=== PATIENT | female | born 1925 | race Asian ===

== ENCOUNTER 2017-01-13 19:09 | Emergency (ER) | payer MEDICARE, MEDICAID ==
[~2017-01-13] VITALS: Ht 149.9 cm; Wt 46.7 kg
--- NOTE | 2017-01-13 19:15 | NUR ---
DR LORENZO AT BEDSIDE TO
--- NOTE | 2017-01-13 19:15 | NUR ---
TO BED 7 AN 89 YO FEMALE PATIENT BIBRA 39 C/O SOB SINCE YESTERDAY. PER EMS "PT RAN OUT OF ALBUTEROL TODAY." BREATHING TREATMENT GIVEN BY PARAMEDICS, PATIENT REPORTS RELIEF FROM SOB UPON ARRIVAL. VSS. NAD NOTED. PLACED ON MONITOR. KEPT HOB ELEVATED. GOWNED. COMFORT MEASURES RENDERED.
[2017-01-13] MEDS ORDERED: predniSONE 10 MG TABLET ONE (19:43)
[2017-01-13] MEDS ORDERED: predniSONE 20 MG TABLET ONE (19:43)
--- NOTE | 2017-01-13 19:50 | NUR ---
STARTED A SALINE LOCK ON THE RAC G20, BLOOD DRAWN AND SENT TO LAB.
[2017-01-13 19:55] LABS: BASOPHILS # (AUTO) 0.2 /CMM (0.0-0.2); BASOPHILS % (AUTO) 1.4 % (0.0-2.0); EOSINOPHILS # (AUTO) 0.2 /CMM (0.0-0.7); EOSINOPHILS % (AUTO) 1.7 % (0.0-6.0); HEMATOCRIT 40 % (33-45); HEMOGLOBIN 13.1 g/dL (11.5-14.8); LYMPHOCYTES # (AUTO) 0.7 /CMM (0.8-4.8); MEAN CORPUSCULAR HEMOGLOBIN 28 PG (26.0-33.0); MEAN CORPUSCULAR HGB CONC 33 g/dl (31.0-36.0); MEAN CORPUSCULAR VOLUME 86 fL (82-100); MONOCYTES # (AUTO) 0.4 /CMM (0.1-1.30); MONOCYTES % (AUTO) 3.4 % (2.0-12.0); NEUTROPHILS % (AUTO) 87.5 % (43.0-81.0); PLATELET COUNT (AUTO) 134 /CMM (150-450); RDW COEFFICIENT OF VARIATION 13.3 (11.5-15.0); RED BLOOD CELL COUNT(AUTO) 4.63 MIL/uL (4.0-5.2); WHITE BLOOD COUNT (AUTO) 11.5 K/uL (4.3-11.0)
[2017-01-13] MEDS ORDERED: predniSONE 20 MG TABLET PO ONE (20:00)
[2017-01-13 20:05] LABS: CALCIUM, SERUM 9.4 mg/dL (8.5-10.1); CARBON DIOXIDE 27 mmol/L (21-32); CHLORIDE 104 mmol/L (98-107); CREATININE 0.8 mg/dL (0.6-1.3); GLUCOSE 125 mg/dL (74-106); POTASSIUM 3.6 mmol/L (3.5-5.1); SODIUM SERUM 140 mmol/L (136-145); UREA NITROGEN, BLOOD 16 mg/dL (7-18)
[2017-01-13 20:11] LABS: ALANINE AMINOTRANSFERASE 33 U/L (12-78); ALBUMIN 3.9 g/dL (3.4-5.0); ALKALINE PHOSPHATASE 67 U/L (46-116); ASPARTATE AMINOTRANSFERASE 31 U/L (15-37); BILIRUBIN,DIRECT 0.1 mg/dL (0.0-0.2); BILIRUBIN,TOTAL 0.4 mg/dL (0.2-1.0)
[2017-01-13 20:13] LABS: TROPONIN I < 0.017 ng/mL (0.00-0.056)
[2017-01-13] MEDS ORDERED: IBUPROFEN 400 MG TABLET ONE (22:26)
[2017-01-13] MEDS ORDERED: IBUPROFEN 400 MG TABLET PO ONE (22:30)
--- NOTE | 2017-01-13 22:56 | NUR ---
IV removed. Catheter intact and site benign. Pressure and 4x4 applied to site. No bleeding noted. Patient discharged to home in stable condition. Written and verbal after care instructions given. Patient verbalizes understanding of instruction. Patient wheeled to private car, accompanied by family. ACE. Emmanuel on DC.
[2017-01-13 22:57] VITALS: BP 139/69
== END 2017-01-13 22:57 | disposition home or self-care (01) ==
LOC: ER 19:16
DX: J45.901 Unspecified asthma with (acute) exacerbation (principal); R50.9 Fever, unspecified; J40 Bronchitis, not specified as acute or chronic; D72.829 Elevated white blood cell count, unspecified; I10 Essential (primary) hypertension; J44.1 Chronic obstructive pulmonary disease with (acute) exacerbation; Z79.82 Long term (current) use of aspirin; Z88.0 Allergy status to penicillin; Z88.1 Allergy status to other antibiotic agents; Z95.818 Presence of other cardiac implants and grafts
CPT/HCPCS: 36415; 71010; 80048; 80076; 84484; 85025; 87081; 93005; 99285; A4606; J7512 ×2; Z7610

== ENCOUNTER 2017-01-15 09:15 | Inpatient (IN) | payer MEDICARE, MEDICAID ==
[~2017-01-15] VITALS: Ht 152.4 cm; Wt 45.4 kg
--- NOTE | 2017-01-15 09:29 | NUR ---
RHEA FROM HOME C/O CP AND STATES SHE CHEWED 2 ASA EN ROUTE TO ER. AAO4.
[2017-01-15] MEDS ORDERED: ALBUTEROL FS 2.5 MG/0.5 ML VIAL.NEB NEB ONE (09:30)
[2017-01-15] MEDS ORDERED: predniSONE 20 MG TABLET PO ONE (09:30)
[2017-01-15] MEDS ORDERED: IPRATROPIUM NEB FS 0.5 MG/2.5 ML AMPUL.NEB NEB ONE (09:30)
[2017-01-15] MEDS ORDERED: predniSONE 20 MG TABLET ONE (09:37)
[2017-01-15 09:44] LABS: BASOPHILS # (AUTO) 0.1 /CMM (0.0-0.2); EOSINOPHILS # (AUTO) 0.1 /CMM (0.0-0.7); EOSINOPHILS % (AUTO) 1.2 % (0.0-6.0); HEMATOCRIT 38 % (33-45); HEMOGLOBIN 12.4 g/dL (11.5-14.8); LYMPHOCYTES # (AUTO) 0.9 /CMM (0.8-4.8); LYMPHOCYTES % (AUTO) 13.9 % (20.0-44.0); MEAN CORPUSCULAR HEMOGLOBIN 28 PG (26.0-33.0); MEAN CORPUSCULAR HGB CONC 33 g/dl (31.0-36.0); MEAN CORPUSCULAR VOLUME 86 fL (82-100); MONOCYTES # (AUTO) 0.8 /CMM (0.1-1.30); MONOCYTES % (AUTO) 11.5 % (2.0-12.0); NEUTROPHILS # (AUTO) 4.8 /CMM (1.8-8.9); NEUTROPHILS % (AUTO) 71.4 % (43.0-81.0); PLATELET COUNT (AUTO) 144 /CMM (150-450); RDW COEFFICIENT OF VARIATION 13.6 (11.5-15.0); RED BLOOD CELL COUNT(AUTO) 4.41 MIL/uL (4.0-5.2); WHITE BLOOD COUNT (AUTO) 6.7 K/uL (4.3-11.0)
[2017-01-15] MEDS ORDERED: IPRATROPIUM NEB FS 0.5 MG/2.5 ML AMPUL.NEB ONE (09:46)
[2017-01-15] MEDS ORDERED: ALBUTEROL FS 2.5 MG/0.5 ML VIAL.NEB ONE (09:46)
[2017-01-15 09:53] LABS: CALCIUM, SERUM 9.2 mg/dL (8.5-10.1); CARBON DIOXIDE 26 mmol/L (21-32); CHLORIDE 105 mmol/L (98-107); CREATININE 0.9 mg/dL (0.6-1.3); GLUCOSE 120 mg/dL (74-106); POTASSIUM 3.9 mmol/L (3.5-5.1); SODIUM SERUM 138 mmol/L (136-145); UREA NITROGEN, BLOOD 27 mg/dL (7-18)
[2017-01-15 09:59] LABS: ALANINE AMINOTRANSFERASE 32 U/L (12-78); ALBUMIN 3.5 g/dL (3.4-5.0); ALKALINE PHOSPHATASE 55 U/L (46-116); ASPARTATE AMINOTRANSFERASE 36 U/L (15-37); BILIRUBIN,DIRECT 0.1 mg/dL (0.0-0.2); BILIRUBIN,TOTAL 0.2 mg/dL (0.2-1.0); TOTAL PROTEIN, SERUM 7.4 g/dL (6.4-8.2)
[2017-01-15 10:01] LABS: TROPONIN I < 0.017 ng/mL (0.00-0.056)
[2017-01-15] MEDS ORDERED: ACET-73 PO (10:02)
[2017-01-15] MEDS ORDERED: LOSA100T15 PO (10:02)
[2017-01-15] MEDS ORDERED: AMLO10TA2 PO (10:02)
[2017-01-15] MEDS ORDERED: PRED20TA PO (10:02)
[2017-01-15] MEDS ORDERED: LABE100T PO (10:02)
[2017-01-15] MEDS ORDERED: ASPI81TA2 PO (10:02)
[2017-01-15] MEDS ORDERED: ALBU2.5V38 IH (10:02)
[2017-01-15] MEDS ORDERED: OXYC10TA49 PO (10:02)
[2017-01-15 10:04] LABS: INR 0.94 (0.87-1.13); PROTHROMBIN TIME 9.8 SECS (9.5-12.7)
[2017-01-15] MEDS ORDERED: OXYB5TAB11 PO (10:04)
--- NOTE | 2017-01-15 10:04 | NUR ---
REPORT CALLED TO BREANA ROJAS RN. TRF TO RM [phone].
--- NOTE | 2017-01-15 11:30 | NUR ---
MS RN RECEIVED AN 89 YEAR OLD FEMALE, AWAKE,ALERT,ORIENTED X2-3, NOT IN ANY FORM OF DISTRESS, RESPIRATIONS EVEN AND UNLABORED, NO SOB NOTED. CAME IN W/ COMPLAIN OF ASTHMA AND CHEST PAIN, BUT DENIES PAIN AT THIS TIME.WILL MONITOR PATIENT.
[2017-01-15 12:00] VITALS: BP 161/69
--- NOTE | 2017-01-15 12:00 | NUR ---
MS RN PAGED KASEY FOR ORDERS, RESPONDED THRU TEXT, WILL PUT ORDERS.
[2017-01-15 16:00] VITALS: BP_SYST 161; BP_SYST 164; BP_DIAS 69; BP_DIAS 73
[2017-01-15] MEDS: AMLODIPINE BESYLATE 10 MG TABLET PO SCH (16:38)
--- NOTE | 2017-01-15 16:44 | NUR ---
ms prosper dixon put orders and carried out.no distress noted.
[2017-01-15] MEDS ORDERED: LABETALOL HCL (100MG) 100 MG TABLET PO SCH (16:46)
[2017-01-15] MEDS ORDERED: LOSARTAN POTASSIUM 50 MG TABLET PO SCH (16:48)
[2017-01-15] MEDS ORDERED: ENOXAPARIN SODIUM 40 MG/0.4 ML DISP.SYRIN SQ SCH (17:00)
[2017-01-15] MEDS ORDERED: HYDROMORPHONE INJ 2 MG/ML DISP.SYRIN IV PRN (17:00)
[2017-01-15] MEDS ORDERED: Z GUARD REMEDY 2 OZ OINT TP PRN (17:00)
[2017-01-15] MEDS ORDERED: ACETAMINOPHEN 325 MG TABLET PO PRN (17:00)
[2017-01-15] MEDS ORDERED: ONDANSETRON HCL/PF 4 MG/2 ML VIAL IVP PRN (17:00)
[2017-01-15] MEDS ORDERED: MORPHINE SULFATE INJ 2 MG/ML DISP.SYRIN IV PRN (17:00)
[2017-01-15] MEDS: ENOXAPARIN SODIUM 30 MG/0.3 ML DISP.SYRIN SQ SCH (17:33)
[2017-01-15 18:23] LABS: TROPONIN I < 0.017 ng/mL (0.00-0.056)
[2017-01-15 18:25] LABS: THYROID STIMULATING HORMONE 0.155 uIU/mL (0.358-3.74)
--- NOTE | 2017-01-15 18:28 | NUR ---
MS RN ON BED, NO DISTRESS NOTED,ALL NEEDS ATTENDED.
[2017-01-15] MEDS: IPRATROPIUM NEB FS 0.5 MG/2.5 ML AMPUL.NEB NEB SCH ×2 (19:14→22:34)
[2017-01-15] MEDS: ALBUTEROL FS 2.5 MG/3 ML VIAL.NEB IH SCH ×2 (19:14→22:34)
[2017-01-15] MEDS ORDERED: ALBUTEROL FS 2.5 MG/0.5 ML VIAL.NEB NEB SCH (19:30)
--- NOTE | 2017-01-15 19:30 | NUR ---
MS RN INITIAL NOTES Received pt alert, awake,verbally responsive,no SOB,no apparent distress noted.Denies any pain or discomfort at this time. IV site Lt FA intact, patent no s/sx of infiltration noted. kept clean and comfortable,call light within reach. Will continue to monitor accordingly
[2017-01-15 20:00] VITALS: BP 146/82
[2017-01-16] VITALS: BP 173/89
[2017-01-16] MEDS: ALBUTEROL FS 2.5 MG/3 ML VIAL.NEB IH SCH ×6 (03:30→23:38)
[2017-01-16] MEDS: IPRATROPIUM NEB FS 0.5 MG/2.5 ML AMPUL.NEB NEB SCH ×6 (03:30→23:38)
[2017-01-16 04:00] VITALS: BP 158/74
--- NOTE | 2017-01-16 06:23 | NUR ---
MS RN Notes Pt in bed asleep, no SOB,no apparent distress noted. On O2 via NC at 2l/min, O2 sat 97%. No s/sx of pain or discomfort noted. Kept clean and comfortable, attended all needs.Call light within reach. Will continue to monitor accordingly
[2017-01-16 06:50] LABS: BASOPHILS % (AUTO) 0.1 % (0.0-2.0); HEMATOCRIT 39 % (33-45); HEMOGLOBIN 12.7 g/dL (11.5-14.8); LYMPHOCYTES # (AUTO) 0.8 /CMM (0.8-4.8); MEAN CORPUSCULAR HEMOGLOBIN 29 PG (26.0-33.0); MEAN CORPUSCULAR HGB CONC 33 g/dl (31.0-36.0); MEAN CORPUSCULAR VOLUME 88 fL (82-100); MONOCYTES # (AUTO) 0.6 /CMM (0.1-1.30); MONOCYTES % (AUTO) 9.2 % (2.0-12.0); NEUTROPHILS # (AUTO) 5.4 /CMM (1.8-8.9); NEUTROPHILS % (AUTO) 78.7 % (43.0-81.0); PLATELET COUNT (AUTO) 137 /CMM (150-450); RDW COEFFICIENT OF VARIATION 14.2 (11.5-15.0); RED BLOOD CELL COUNT(AUTO) 4.43 MIL/uL (4.0-5.2); WHITE BLOOD COUNT (AUTO) 6.9 K/uL (4.3-11.0)
[2017-01-16 07:14] LABS: CHOLESTEROL 188 mg/dL (<200); HDL CHOLESTEROL 79 mg/dL (40-60); LDL 89 mg/dL (0-99); THYROID STIMULATING HORMONE 0.425 uIU/mL (0.358-3.74); TRIGLYCERIDES 84 mg/dL (30-150)
[2017-01-16 07:29] LABS: ALANINE AMINOTRANSFERASE 34 U/L (12-78); ALKALINE PHOSPHATASE 52 U/L (46-116); ASPARTATE AMINOTRANSFERASE 30 U/L (15-37); BILIRUBIN,TOTAL 0.2 mg/dL (0.2-1.0); CALCIUM, SERUM 8.9 mg/dL (8.5-10.1); CARBON DIOXIDE 28 mmol/L (21-32); CHLORIDE 108 mmol/L (98-107); CREATININE 0.7 mg/dL (0.6-1.3); GLUCOSE 112 mg/dL (74-106); MAGNESIUM 2.4 mg/dL (1.8-2.4); PHOSPHORUS 3.1 mg/dL (2.5-4.9); POTASSIUM 4.1 mmol/L (3.5-5.1); SODIUM SERUM 143 mmol/L (136-145); TOTAL PROTEIN, SERUM 6.8 g/dL (6.4-8.2); UREA NITROGEN, BLOOD 19 mg/dL (7-18)
[2017-01-16 08:00] VITALS: BP 157/70
--- NOTE | 2017-01-16 08:00 | NUR ---
SANITARY PLUMBER AM NOTES Received pt alert, awake,verbally responsive,no SOB,no apparent distress noted.On tele with SB HR 40's.Denies any pain or discomfort at this time. IV site LFA intact, patent no s/sx of infiltration noted. kept clean and comfortable,call light within reach. Will continue to monitor accordingly
[2017-01-16] MEDS: OXYBUTYNIN CHLORIDE 5 MG TABLET PO SCH (08:48)
[2017-01-16] MEDS: AMLODIPINE BESYLATE 10 MG TABLET PO SCH (08:49)
[2017-01-16] MEDS: ASPIRIN 81 MG TAB.CHEW PO SCH (08:49)
[2017-01-16] MEDS: POTASSIUM CHLORIDE 20 MEQ TAB.PRT.SR PO SCH ×2 (08:49→16:54)
[2017-01-16] MEDS: predniSONE 20 MG TABLET PO SCH (08:49)
[2017-01-16] MEDS: VALSARTAN 80 MG TABLET PO SCH (08:49)
--- NOTE | 2017-01-16 10:00 | NUR ---
PT AMBULATED WITH P.T. USING FWW 200 FEET STANDBY ASSIST/CONTACT GUARD IN SLOW,STEADY GAIT BUT NEEDS ASSIST.PT TOLERATED WELL.
--- NOTE | 2017-01-16 11:52 | NUR ---
MSRN NOTES During RELAY ASSEMBLER Alexia rounds patient complaint of chest pain with orders to give Nitroglycerin 0.4mg SL. VS checked BP 142/84, AL 80, RR 18, 02 98% on 2LPM NC. Administered Nitroglycerin as ordered. Will continue to monitor
--- NOTE | 2017-01-16 11:58 | NUR ---
MS -RN NOTES Reassessed patient denied chest pain. VS taken BP 122/88, VT 82, RR 19, 02 98% 2Lpm via NC. ANODE MACHINE OPERATOR Alexia aware
[2017-01-16] MEDS ORDERED: NITROGLYCERIN 0.4 MG/TAB BOTTLE SL PRN (12:00)
[2017-01-16 16:00] VITALS: BP 124/68
[2017-01-16] MEDS: ENOXAPARIN SODIUM 30 MG/0.3 ML DISP.SYRIN SQ SCH (16:55)
--- NOTE | 2017-01-16 18:21 | NUR ---
CLOSING NOTES Patient sitting in bed comfortably, HOB elevated eating dinner. No SOB noted, denied any pain. No distress noted. Call light within easy reach.
[2017-01-16] MEDS: IV NS 0.9% 1,000 ML IV PRN (19:21)
[2017-01-16] MEDS ORDERED: IPRATROPIUM NEB FS 0.5 MG/2.5 ML AMPUL.NEB ONE (19:25)
[2017-01-16] MEDS ORDERED: ALBUTEROL FS 2.5 MG/3 ML VIAL.NEB ONE (19:25)
--- NOTE | 2017-01-16 19:30 | NUR ---
MS RN Initial notes Received pt in bed alert, awake, verbally responsive.On O2 via N/C at 2 l/min. O2 sat 97%. IV site LT FA intact, patent, no s/sx of infiltration noted. kept clean and comfortable, attended all needs.Call light within reach. Will continue to monitor accordingly
[2017-01-16 20:08] VITALS: BP 140/71
[2017-01-16 20:27] VITALS: BP 140/71
[2017-01-17] MEDS: IPRATROPIUM NEB FS 0.5 MG/2.5 ML AMPUL.NEB NEB SCH ×6 (03:40→23:52)
[2017-01-17] MEDS: ALBUTEROL FS 2.5 MG/3 ML VIAL.NEB IH SCH ×6 (03:40→23:52)
[2017-01-17] MEDS: IV NS 0.9% 1,000 ML IV PRN ×2 (04:09→16:28)
--- NOTE | 2017-01-17 06:32 | NUR ---
MS RN CLOSING NOTES PT IN BED AWAKE,ALERT,VERBALLY RESPONSIVE,ON O2 VIA NC AT 2L/MIN, O2 SAT 97%, NO SOB, NO APPARENT DISTRESS NOTED. IV SITE LT FA INTACT, PATENT,ON IV NS AT 100ML/HR. DENIES ANY PAIN OR DISCOMFORT AT THIS TIME.CALL LIGHT WITHIN REACH, WILL CONTINUE TO MONITOR.
[2017-01-17 08:00] VITALS: BP 160/74
--- NOTE | 2017-01-17 08:00 | NUR ---
MS RN AM NOTES Received pt alert, awake,verbally responsive,no SOB,no apparent distress noted.Denies any pain or discomfort at this time. IV site LFA intact, patent no s/sx of infiltration noted. kept clean and comfortable,call light within reach. Will continue to monitor accordingly
[2017-01-17] MEDS: predniSONE 20 MG TABLET PO SCH (08:41)
[2017-01-17] MEDS: ASPIRIN 81 MG TAB.CHEW PO SCH (08:41)
[2017-01-17] MEDS: AMLODIPINE BESYLATE 10 MG TABLET PO SCH (08:42)
[2017-01-17] MEDS: VALSARTAN 80 MG TABLET PO SCH (08:42)
[2017-01-17] MEDS: OXYBUTYNIN CHLORIDE 5 MG TABLET PO SCH (08:43)
[2017-01-17 10:00] VITALS: BP 153/56
[2017-01-17] MEDS: LABETALOL HCL (100MG) 100 MG TABLET PO SCH (11:31)
[2017-01-17 16:00] VITALS: BP 156/79
[2017-01-17] MEDS: ENOXAPARIN SODIUM 30 MG/0.3 ML DISP.SYRIN SQ SCH (16:30)
--- NOTE | 2017-01-17 16:43 | NUR ---
Spoke with ute Urena- patient lives alone in the 2nd floor senior apartment complex that has [facility].Patient ambulates with a cane or a walker, she is independent with adl's.She received [facility] caregiver that comes daily to assist her. Family is involved and supportive with plan of care. Ute Urena can provide transportation home once discharge. Addendum: 01/17/17 at 1643 by YAAKOV ANDRADE RN Amended: Links added.
[2017-01-17] MEDS: Z GUARD REMEDY 2 OZ OINT TP SCH ×2 (17:16→21:00)
--- NOTE | 2017-01-17 18:59 | NUR ---
MS RN CLOSING NOTES Patient in bed comfortably, alert. HOB elevated. No distress noted. No SOB noted. Denied any pain. On O2 via NC saturating 98-99%. Due medications given no A/R noted. IV on LFA intact, patent. No s/sx of infiltration noted. Needs attended and anticipated. Kept clean and dry. Will continue to monitor and endorse to incoming shift.
--- NOTE | 2017-01-17 19:35 | NUR ---
MSRN FULLY AWAKE, FINISHING HER DINNER. ALL NEEDS ATENDED, NO SOB, PAINFREE FOR NOW. INMFORMED NEED TO BE MOVED TO 2ND FLOOR.VIA BED. TO CONTINUE
[2017-01-17 20:00] VITALS: BP 156/88
--- NOTE | 2017-01-17 21:10 | NUR ---
MSRN MOVED TO 2ND FLOOR VIA BED WITH ALL PERSONAL BELONGINGS AND PORTABLE O2. SAFETY PRECAUTIONS EMPHASIZED, WELL UNDERSTOOD. CALL LIGHT WITHIN REACH.
[2017-01-17 22:00] VITALS: BP 156/88
--- NOTE | 2017-01-17 22:30 | NUR ---
MSRN ASSISTED TO RESTROOM, HAD SMALL BM. SELF CARE, AMBULATES WITH FFW.
[2017-01-18] MEDS: ALBUTEROL FS 2.5 MG/3 ML VIAL.NEB IH SCH ×6 (03:30→23:22)
[2017-01-18] MEDS: IPRATROPIUM NEB FS 0.5 MG/2.5 ML AMPUL.NEB NEB SCH ×6 (03:30→23:22)
--- NOTE | 2017-01-18 04:17 | NUR ---
MANJIT REFUSED THIS EARLY AM N TX
[2017-01-18] MEDS: IV NS 0.9% 1,000 ML IV PRN ×2 (05:24→21:04)
--- NOTE | 2017-01-18 06:30 | NUR ---
MSRN NO NEEDS ATTENDED, O2 MAINTAINED. KEPT COMFORTABLE
[2017-01-18 08:00] VITALS: BP 150/72
--- NOTE | 2017-01-18 08:00 | NUR ---
RN NOTES RECEIVED PATIENT IN THE BED A/O X3, ON O2-2L NC, NO SOB AT THIS TIME. V/S TAKEN STABLE, PATIENT TAKE SCHEDULED MEDICATION, NEEDS ATTENDED AND ANTICIPATED, PATIENT TURN, AND REPOSITION SELF IN THE BED, IV LINE NS AT 100 ML/HR ON LEFT FOREARM INTACT, ENCOURAGED PATIENT TO EXPRESS FEELINGS AND CONCERNS TO NSG, PATIENT REFUSED PAIN AT THIS TIME. CALL LIGHT WITHIN TO REACH, SAFETY PRECAUTION MAINTAINED ALL THE TIME. GILLES UED MONITORING
[2017-01-18] MEDS: AMLODIPINE BESYLATE 10 MG TABLET PO SCH (09:14)
[2017-01-18] MEDS: ASPIRIN 81 MG TAB.CHEW PO SCH (09:15)
[2017-01-18] MEDS: VALSARTAN 80 MG TABLET PO SCH (09:15)
[2017-01-18] MEDS: Z GUARD REMEDY 2 OZ OINT TP SCH ×2 (09:16→20:29)
[2017-01-18] MEDS: OXYBUTYNIN CHLORIDE 5 MG TABLET PO SCH (09:16)
[2017-01-18] MEDS: predniSONE 20 MG TABLET PO SCH (09:16)
--- NOTE | 2017-01-18 10:00 | NUR ---
RN NOTES PATIENT SITTING IN THE CHAIR, SCHEDULED MEDICATION ADMINISTERED, V/S STABLE BP 144/71, NO C/O PAIN CALL LIGHT WITHIN TO REACH, CONTINUED MONITORING.
[2017-01-18] MEDS: LABETALOL HCL (100MG) 100 MG TABLET PO SCH (11:13)
--- NOTE | 2017-01-18 15:08 | NUR ---
RN NOTES PATIENT SITTING IN THE CHAIR, NO ACUTE DISTRESS, NO RESPIRATORY DISTRESS, WATCHING TV, FAMILY NEXT TO THE BED, INFUSING IV ON LEFT FA INTACT, CALL LIGHT WITHIN TO REACH, SAFETY PRECAUTION MAINTAINING.
[2017-01-18 16:00] VITALS: BP 119/66
[2017-01-18] MEDS ORDERED: POTASSIUM CHLORIDE 20 MEQ TAB.PRT.SR PO ONE (16:30)
[2017-01-18] MEDS ORDERED: FUROSEMIDE 20 MG/2 ML VIAL IV ONE ×2 (16:30→17:30)
[2017-01-18] MEDS: ENOXAPARIN SODIUM 30 MG/0.3 ML DISP.SYRIN SQ SCH (17:01)
--- NOTE | 2017-01-18 18:45 | NUR ---
RN NOTES PATIENT IN THE ROOM, EATING. SCHEDULED MEDICATION ADMINISTERED, V/S STABLE, NO ACUTE, NO RESPIRATORY DISTRESS, IV LINE INTACT NS-100 ML/HR, CALL LIGHT WITHIN TO REACH, SAFETY PRECAUTION MAINTAINED ALL THE TIME. CONTINUED MONITORING. ENDORSED ONCOMING NURSE FOR CONTINUATION OF CARE.
--- NOTE | 2017-01-18 19:45 | NUR ---
MS RN NOTE: PATIENT SITTING UP IN CHAIR, NO ACUTE DISTRESS NOTED. BREATHING EVEN AND UNLABORED, NO SOB NOTED. OXYGEN [address] IV TO LFA IN PLACE, INFUSING NS AT 100 ML/HR. CALL LIGHT IN REACH. WILL CONTINUE TO MONITOR.
[2017-01-18 20:11] VITALS: BP 140/73
--- NOTE | 2017-01-19 03:00 | NUR ---
MS RN NOTE: PATIENT SLEEPING IN BED, NO ACUTE DISTRESS NOTED. BREATHING EVEN AND UNLABORED, NO SOB NOTED. OXYGEN IN PLACE. BED LOCKED AND IN LOWEST POSITION, CALL LIGHT IN REACH. WILL CONTINUE TO MONITOR.
[2017-01-19] MEDS: IPRATROPIUM NEB FS 0.5 MG/2.5 ML AMPUL.NEB NEB SCH ×5 (03:15→19:33)
[2017-01-19] MEDS: ALBUTEROL FS 2.5 MG/3 ML VIAL.NEB IH SCH ×5 (03:15→19:33)
--- NOTE | 2017-01-19 06:45 | NUR ---
MS RN NOTE: PATIENT RESTING IN BED, NO ACUTE DISTRESS NOTED. BREATHING EVEN AND UNLABORED, NO SOB NOTED. OXYGEN [address] IV TO LFA IN PLACE, INFUSING NS AT 100 ML/HR. CALL LIGHT IN REACH. WILL ENDORSE TO DAY NURSE TO CONTINUE WITH PLAN OF CARE.
[2017-01-19 08:00] VITALS: BP 159/89
--- NOTE | 2017-01-19 08:00 | NUR ---
RN NOTES SEEN PATIENT IN THE EBD RESTING QUIETLY, NO ACUTE . NO RESPIRATORY DISTRESS, IV LINE ON LEFT FOREARM, INTACT, INFUSING NS 100ML/HR, CALL LIGHT WITHIN TO REACH, SAFETY PRECAUTION MAINTAINED ALL THE TIME.
[2017-01-19] MEDS: IV NS 0.9% 1,000 ML IV PRN (08:23)
[2017-01-19] MEDS: VALSARTAN 80 MG TABLET PO SCH (08:27)
[2017-01-19] MEDS: ASPIRIN 81 MG TAB.CHEW PO SCH (08:27)
[2017-01-19] MEDS: AMLODIPINE BESYLATE 10 MG TABLET PO SCH (08:27)
[2017-01-19] MEDS: predniSONE 20 MG TABLET PO SCH (08:27)
[2017-01-19] MEDS: OXYBUTYNIN CHLORIDE 5 MG TABLET PO SCH (08:27)
[2017-01-19] MEDS: Z GUARD REMEDY 2 OZ OINT TP SCH ×2 (08:29→20:54)
[2017-01-19] MEDS: LABETALOL HCL (100MG) 100 MG TABLET PO SCH (10:17)
--- NOTE | 2017-01-19 11:06 | NUR ---
RN NOTES PATIENT IN THE BED, SCHEDULED MEDICATION ADMINISTERED, V/S STABLE, NEEDS ATTENDED AND ANTICIPATED, ENCOURAGED TO EXPRESS FEELINGS AND CONCERNS, NO ACUTE DISTRESS AT THIS TIME, PATIENT HAS A 02-2L NC, NO RESPIRATORY DISTRESS, CALL LIGHT WITHIN TO REACH, CONTINUED MONITORING.
[2017-01-19] MEDS ORDERED: FUROSEMIDE 20 MG/2 ML VIAL IV ONE (12:30)
[2017-01-19 14:28] LABS: EOSINOPHILS % (AUTO) 0.2 % (0.0-6.0); HEMATOCRIT 40 % (33-45); HEMOGLOBIN 13.1 g/dL (11.5-14.8); LYMPHOCYTES # (AUTO) 0.6 /CMM (0.8-4.8); LYMPHOCYTES % (AUTO) 7.5 % (20.0-44.0); MEAN CORPUSCULAR HEMOGLOBIN 28 PG (26.0-33.0); MEAN CORPUSCULAR HGB CONC 33 g/dl (31.0-36.0); MEAN CORPUSCULAR VOLUME 86 fL (82-100); MONOCYTES # (AUTO) 0.1 /CMM (0.1-1.30); MONOCYTES % (AUTO) 1.2 % (2.0-12.0); NEUTROPHILS % (AUTO) 91.1 % (43.0-81.0); PLATELET COUNT (AUTO) 166 /CMM (150-450); RDW COEFFICIENT OF VARIATION 13.6 (11.5-15.0); RED BLOOD CELL COUNT(AUTO) 4.63 MIL/uL (4.0-5.2); WHITE BLOOD COUNT (AUTO) 7.6 K/uL (4.3-11.0)
[2017-01-19 14:44] LABS: CALCIUM, SERUM 9.4 mg/dL (8.5-10.1); CARBON DIOXIDE 28 mmol/L (21-32); CHLORIDE 104 mmol/L (98-107); CREATININE 0.9 mg/dL (0.6-1.3); GLUCOSE 245 mg/dL (74-106); PHOSPHORUS 4.8 mg/dL (2.5-4.9); POTASSIUM 4.6 mmol/L (3.5-5.1); SODIUM SERUM 141 mmol/L (136-145); UREA NITROGEN, BLOOD 23 mg/dL (7-18)
--- NOTE | 2017-01-19 15:00 | NUR ---
RN NOTES PATIENT IN THE BED AFTER BREATHING TREATMENT. FAMILY NEXT TO THE BED, NO ACUTE DISTRESS, CONTINUED MONITORING.
[2017-01-19 16:00] VITALS: BP 112/54
[2017-01-19] MEDS ORDERED: DOCUSATE SODIUM 250 MG CAPSULE PO SCH (17:00)
[2017-01-19] MEDS: DOCUSATE SODIUM 100 MG CAPSULE PO SCH (17:36)
[2017-01-19] MEDS: ENOXAPARIN SODIUM 30 MG/0.3 ML DISP.SYRIN SQ SCH (17:40)
--- NOTE | 2017-01-19 19:00 | NUR ---
RN NOTES PATIENT IN THE BED EATING, MED COMPLIANT, NO ACUTE. NO RESPIRATORY DISTRESS, NO C/O PAIN AT THIS TIME. SCHEDULED MEDICATION ADMINISTERED, V/S STABLE, ENCOURAGED TO INCREASE FLUID INTAKE. NEEDS ATTENDED AND ANTICIPATED,, ENDORSED ONCOMING NURSE FOR CONTINUATION OF CARE.
--- NOTE | 2017-01-19 19:55 | NUR ---
MS RN NOTE: PATIENT RESTING IN BED, NO ACUTE DISTRESS NOTED. BREATHING EVEN AND UNLABORED, NO SOB NOTED. OXYGEN [address] IV TO LFA IN PLACE. CALL LIGHT IN REACH. WILL CONTINUE TO MONITOR.
[2017-01-19 20:00] VITALS: BP 131/62
[2017-01-20] MEDS: ALBUTEROL FS 2.5 MG/3 ML VIAL.NEB IH SCH ×7 (00:02→23:41)
[2017-01-20] MEDS: IPRATROPIUM NEB FS 0.5 MG/2.5 ML AMPUL.NEB NEB SCH ×7 (00:02→23:41)
--- NOTE | 2017-01-20 06:25 | NUR ---
MS RN NOTE: PATIENT RESTING IN BED, NO ACUTE DISTRESS NOTED. BREATHING EVEN AND UNLABORED, NO SOB NOTED. OXYGEN [address] IV TO LFA IN PLACE. CALL LIGHT IN REACH. WILL ENDORSE TO DAY NURSE TO CONTINUE WITH PLAN OF CARE.
[2017-01-20 08:00] VITALS: BP 140/70
--- NOTE | 2017-01-20 08:00 | NUR ---
RN NOTES SEEN PATIENT SITTING IN THE BED, A/A/O X4, PATIENT STABLE AT THIS TIME PRAYING. NO ACUTE DISTRESS, CALL LIGHT WITHIN TO REACH, SAFETY PRECAUTION MAINTAINED ALL THE TIME.
--- NOTE | 2017-01-20 08:09 | NUR ---
RT PT EATING WILL COME BACK LATER Addendum: 01/20/17 at 0810 by POLLY HARPER RT Amended: Links added.
[2017-01-20] MEDS: DOCUSATE SODIUM 100 MG CAPSULE PO SCH ×2 (10:07→17:08)
[2017-01-20] MEDS: ASPIRIN 81 MG TAB.CHEW PO SCH (10:07)
[2017-01-20] MEDS: AMLODIPINE BESYLATE 10 MG TABLET PO SCH (10:07)
[2017-01-20] MEDS: LABETALOL HCL (100MG) 100 MG TABLET PO SCH (10:08)
[2017-01-20] MEDS: VALSARTAN 80 MG TABLET PO SCH (10:08)
[2017-01-20] MEDS: predniSONE 20 MG TABLET PO SCH (10:08)
[2017-01-20] MEDS: OXYBUTYNIN CHLORIDE 5 MG TABLET PO SCH (10:08)
[2017-01-20] MEDS: Z GUARD REMEDY 2 OZ OINT TP SCH ×2 (10:09→21:00)
--- NOTE | 2017-01-20 12:00 | NUR ---
RN NOTES PATIENT EATING AT THIS TIME, MED COMPLIANT, V/S STABLE, ASSIST ADL'S, AND BATHROOM, PATIENT HAS NO C/O RESPIRATORY DISTRESS,. ON O2-2L NC, ENCOURAGED TO EXPRESS FEELINGS AND CONCERNS, CALL LIGHT WITHIN TO REACH, SAFETY PRECAUTION MAINTAINED ALL THE TIME.
--- NOTE | 2017-01-20 14:55 | NUR ---
RN NOTES PATIENT WITH PT AT THIS TIME, CONTINUED MONITORING.
[2017-01-20 16:00] VITALS: BP 118/70
[2017-01-20] MEDS: ENOXAPARIN SODIUM 30 MG/0.3 ML DISP.SYRIN SQ SCH (17:09)
--- NOTE | 2017-01-20 18:00 | NUR ---
RN NOTES PATIENT IN THE BED, EATING, FAMILY NEXT TO THE BED, NO RESPIRATORY DISTRESS, NO ACUTE DISTRESS, SAFETY PRECAUTION MAINTAINED ALL THE TIME. ENDORSED ONCOMING NURSE FOR CONTINUATION OF CARE.
--- NOTE | 2017-01-20 19:50 | NUR ---
MS RN INITIAL NOTES PT IS IN BED SLEEPING, EASILY AROUSED. PLEASANT AND ABLE TO MAKE NEEDS KNOWN. COUGHS WHEN TAKING IN DEEP BREATHS, SCHEDULED BREATHING TX TO BE ADMINISTERED. DENIES PAIN. BED IS IN LOW AND LOCKED POSITION, CALL LIGHT WITHIN REACH. WILL CONTINUE TO MONITOR PT.
[2017-01-20 20:00] VITALS: BP 124/70
[2017-01-21] MEDS: ALBUTEROL FS 2.5 MG/3 ML VIAL.NEB IH SCH ×7 (03:30→23:28)
[2017-01-21] MEDS: IPRATROPIUM NEB FS 0.5 MG/2.5 ML AMPUL.NEB NEB SCH ×7 (03:30→23:28)
--- NOTE | 2017-01-21 06:37 | NUR ---
MS RN CLOSING NOTES PT IS AWAKE IN BED. SLEPT WELL THROUGHOUT THE NIGHT. NO ACUTE CHANGES. ALL NEEDS WERE ANTICIPATED AND MET. BED IS IN LOW AND LOCKED POSITION, CALL LIGHT WITHIN REACH. WILL ENDORSE TO DAYSHIFT
--- NOTE | 2017-01-21 07:55 | NUR ---
RN OPENING NOTES RECEIVED PT. PT IS STABLE AND RESTING IN BEDSIDE CHAIR, A/OX3. PT IS ON RA, O2 SAT WNL. NO S/S OF SOB OR DISTRESS. PT DOES NOT APPEAR TO BE IN PAIN. IV ACCESS LOCATED ON LEFT FOREARM 20G CURRENTLY SL. POSSIBLE D/C TODAY,N 01/21/17. SAFETY MEASURES IN PLACE, CALL LIGHT WITHIN REACH, WILL CONTINUE TO MONITOR.
[2017-01-21 08:00] VITALS: BP 142/78
[2017-01-21] MEDS ORDERED: IPRA0.2S9 NEB (08:28)
[2017-01-21] MEDS: OXYBUTYNIN CHLORIDE 5 MG TABLET PO SCH (08:37)
[2017-01-21] MEDS: predniSONE 20 MG TABLET PO SCH (08:37)
[2017-01-21] MEDS: DOCUSATE SODIUM 100 MG CAPSULE PO SCH ×2 (08:37→17:47)
[2017-01-21] MEDS: ASPIRIN 81 MG TAB.CHEW PO SCH (08:37)
[2017-01-21] MEDS: VALSARTAN 80 MG TABLET PO SCH (08:38)
[2017-01-21] MEDS: Z GUARD REMEDY 2 OZ OINT TP SCH ×2 (08:43→20:50)
[2017-01-21] MEDS: LABETALOL HCL (100MG) 100 MG TABLET PO SCH (08:56)
[2017-01-21] MEDS: AMLODIPINE BESYLATE 10 MG TABLET PO SCH (08:56)
[2017-01-21 16:00] VITALS: BP 130/64
[2017-01-21] MEDS: ENOXAPARIN SODIUM 30 MG/0.3 ML DISP.SYRIN SQ SCH (17:53)
--- NOTE | 2017-01-21 18:21 | NUR ---
RN CLOSING NOTES PT IS IN BED RESTING. A/OX4. NO S/S OF RESPIRATORY DISTRESS OR SOB. PT HAS A PRODUCTIVE COUGH, THICK SPUTUM. O2 SAT WNL. ALL PT NEEDS ANTICIPATED AND MET. SAFETY MEASURES IN PLACE, CALL LIGHT WITHIN REACH. WILL ENDORSE TO MOLD YARD WORKER FOR JUWAN.
--- NOTE | 2017-01-21 19:40 | NUR ---
MS RN INITIAL NOTES PT IS IN BED AWAKE AND ALERT, EASILY AROUSED. PLEASANT AND ABLE TO MAKE NEEDS KNOWN. COUGHING, SCHEDULED BREATHING TX TO BE ADMINISTERED. DENIES PAIN. BED IS IN LOW AND LOCKED POSITION, CALL LIGHT WITHIN REACH. WILL CONTINUE TO MONITOR PT.
[2017-01-21 20:00] VITALS: BP 134/68
[2017-01-22] MEDS: ALBUTEROL FS 2.5 MG/3 ML VIAL.NEB IH SCH ×6 (02:39→23:42)
[2017-01-22] MEDS: IPRATROPIUM NEB FS 0.5 MG/2.5 ML AMPUL.NEB NEB SCH ×6 (02:39→23:42)
--- NOTE | 2017-01-22 06:13 | NUR ---
MS RN CLOSING NOTES PT IS AWAKE IN BED. SLEPT WELL THROUGHOUT THE NIGHT. NO ACUTE CHANGES. LABS TO BE DRAWN THIS MORNING. POSSIBLE D/C TODAY. ALL NEEDS WERE ANTICIPATED AND MET. BED IS IN LOW AND LOCKED POSITION, CALL LIGHT WITHIN REACH. WILL ENDORSE TO DAYSHIFT
[2017-01-22 07:39] LABS: BASOPHILS % (AUTO) 0.4 % (0.0-2.0); EOSINOPHILS # (AUTO) 0.1 /CMM (0.0-0.7); EOSINOPHILS % (AUTO) 0.7 % (0.0-6.0); HEMATOCRIT 39 % (33-45); HEMOGLOBIN 12.9 g/dL (11.5-14.8); LYMPHOCYTES % (AUTO) 24.4 % (20.0-44.0); MEAN CORPUSCULAR HEMOGLOBIN 28 PG (26.0-33.0); MEAN CORPUSCULAR HGB CONC 33 g/dl (31.0-36.0); MEAN CORPUSCULAR VOLUME 87 fL (82-100); MONOCYTES # (AUTO) 0.7 /CMM (0.1-1.30); MONOCYTES % (AUTO) 8.7 % (2.0-12.0); NEUTROPHILS # (AUTO) 5.4 /CMM (1.8-8.9); NEUTROPHILS % (AUTO) 65.8 % (43.0-81.0); PLATELET COUNT (AUTO) 183 /CMM (150-450); RDW COEFFICIENT OF VARIATION 13.8 (11.5-15.0); RED BLOOD CELL COUNT(AUTO) 4.53 MIL/uL (4.0-5.2); WHITE BLOOD COUNT (AUTO) 8.3 K/uL (4.3-11.0)
--- NOTE | 2017-01-22 07:56 | NUR ---
RN OPENING NOTES RECEIVED PT. PT IS STABLE AND RESTING IN BED. A/OX4. NO S/S OF DISTRESS OR SOB. NO C/O PAIN AT THIS TIME. POSSIBLE D/C TODAY. IV ACCESS LOCATED ON LEFT FOREARM 20G, SL. SAFETY MEASURES IN PLACE, CALL LIGHT WITHIN REACH. WILL CONTINUE TO MONITOR.
[2017-01-22 08:00] VITALS: BP 125/63
[2017-01-22 08:01] LABS: CALCIUM, SERUM 9.2 mg/dL (8.5-10.1); CARBON DIOXIDE 32 mmol/L (21-32); CHLORIDE 103 mmol/L (98-107); CREATININE 0.7 mg/dL (0.6-1.3); GLUCOSE 95 mg/dL (74-106); MAGNESIUM 2.3 mg/dL (1.8-2.4); PHOSPHORUS 3.6 mg/dL (2.5-4.9); POTASSIUM 3.9 mmol/L (3.5-5.1); SODIUM SERUM 140 mmol/L (136-145); UREA NITROGEN, BLOOD 24 mg/dL (7-18)
[2017-01-22] MEDS: GUAIFENESIN/D-METHORPHAN HB 5 ML UDC PO PRN ×2 (08:55→17:57)
[2017-01-22] MEDS: VALSARTAN 80 MG TABLET PO SCH (08:57)
[2017-01-22] MEDS: DOCUSATE SODIUM 100 MG CAPSULE PO SCH ×2 (08:58→16:25)
[2017-01-22] MEDS: OXYBUTYNIN CHLORIDE 5 MG TABLET PO SCH (08:58)
[2017-01-22] MEDS: ASPIRIN 81 MG TAB.CHEW PO SCH (08:59)
[2017-01-22] MEDS: predniSONE 20 MG TABLET PO SCH (08:59)
[2017-01-22] MEDS: AMLODIPINE BESYLATE 10 MG TABLET PO SCH (09:00)
[2017-01-22] MEDS: LABETALOL HCL (100MG) 100 MG TABLET PO SCH (09:00)
[2017-01-22] MEDS: Z GUARD REMEDY 2 OZ OINT TP SCH ×2 (09:03→21:13)
--- NOTE | 2017-01-22 09:12 | NUR ---
RN NOTES AM AMLODIPINE AND LABETALOL HELD, LOW HR (57 BPM) AND STABLE BP (125/63).
[2017-01-22 10:00] VITALS: BP 125/63
[2017-01-22 16:00] VITALS: BP 128/68
[2017-01-22] MEDS: ENOXAPARIN SODIUM 30 MG/0.3 ML DISP.SYRIN SQ SCH (16:31)
--- NOTE | 2017-01-22 17:25 | NUR ---
RN NOTES PT DISCHARGE HELD OFF UNTIL TOMORROW 01/23/17, PER FAMILY REQUEST. MD AGREED DUE TO AIR QUALITY IN PT'S AREA AND THE ALREADY PRESENT CONGESTION AND WHEEZING.
--- NOTE | 2017-01-22 18:38 | NUR ---
RN CLOSING NOTES PT IS IN ROOM RESTING IN BED. A/OX4. PT BREATHING IS SOMEWHAT LABORED, WITH PERSISTENT PRODUCTIVE COUGH. SPUTUM IS THICK AND CLEAR. PRN COUGH MEDICATION GIVEN. D/C HELD OFF UNTIL 01/23 DUE TO RESPIRATORY ISSUES AND SURROUNDING AREAS AIR QUALITY. ALL PT NEEDS ANTICIPATED AND MET. SAFETY MEASURES IN PLACE, CALL LIGHT WITHIN REACH. WILL ENDORSE TO DIRECTOR PATIENT FOR JUWAN.
[2017-01-22 20:00] VITALS: BP_SYST 169; BP_SYST 91; BP_DIAS 51; BP_DIAS 73
[2017-01-23] MEDS: IPRATROPIUM NEB FS 0.5 MG/2.5 ML AMPUL.NEB NEB SCH ×6 (03:17→23:55)
[2017-01-23] MEDS: ALBUTEROL FS 2.5 MG/3 ML VIAL.NEB IH SCH ×6 (03:17→23:55)
--- NOTE | 2017-01-23 06:31 | NUR ---
MS RN NOTES AWAKE & RESPONSIVE. NOT IN ANY DISTRESS. NO SOB NOTED. DENIES ANY PAIN OR DISCOMFORT AT THIS TIME. AM CARE DONE. MONITORED ACCORDINGLY. CALL LIGHT WITHIN REACH. BED IN LOWEST POSITION. SR UP X 2 FOR SAFETY WITH BED ALARM ON. WILL ENDORSE TO NEXT SHIFT.
[2017-01-23 08:00] VITALS: BP 146/69
[2017-01-23] MEDS: ASPIRIN 81 MG TAB.CHEW PO SCH (08:26)
[2017-01-23] MEDS: VALSARTAN 80 MG TABLET PO SCH (08:26)
[2017-01-23] MEDS: OXYBUTYNIN CHLORIDE 5 MG TABLET PO SCH (08:26)
[2017-01-23] MEDS: predniSONE 20 MG TABLET PO SCH (08:26)
[2017-01-23] MEDS: AMLODIPINE BESYLATE 10 MG TABLET PO SCH (08:27)
[2017-01-23] MEDS: LABETALOL HCL (100MG) 100 MG TABLET PO SCH (08:27)
[2017-01-23] MEDS: Z GUARD REMEDY 2 OZ OINT TP SCH ×2 (08:29→21:07)
[2017-01-23] MEDS: DOCUSATE SODIUM 100 MG CAPSULE PO SCH ×2 (08:42→16:23)
[2017-01-23] MEDS: GUAIFENESIN/D-METHORPHAN HB 5 ML UDC PO PRN ×3 (10:26→19:57)
[2017-01-23] MEDS: ENOXAPARIN SODIUM 30 MG/0.3 ML DISP.SYRIN SQ SCH (16:19)
--- NOTE | 2017-01-23 18:45 | NUR ---
M/S RN - Notes Patient A/O x 3, denies pain, still noted with SOB on exertion, currently tolerating room air, with occasional cough. Patient on breathing treatment and was given Robitussin q4h PRN to relieve chest congestion. Patient assisted with self care activities to minimize exhaustion and encouraged to increase fluid intake. All needs attended and met. Will continue with current medical management.
[2017-01-23 20:00] VITALS: BP 135/65
[2017-01-24] MEDS: ALBUTEROL FS 2.5 MG/3 ML VIAL.NEB IH SCH ×4 (02:57→16:16)
[2017-01-24] MEDS: IPRATROPIUM NEB FS 0.5 MG/2.5 ML AMPUL.NEB NEB SCH ×4 (02:57→16:16)
--- NOTE | 2017-01-24 07:37 | NUR ---
MS/RN Patient received Patient received from power electronics research engineer Calm and cooperative, no shortness of breath. All needs attended, call light within reach, Will continue to monitor and ensure safety.
[2017-01-24 08:00] VITALS: BP 154/70
[2017-01-24] MEDS: predniSONE 20 MG TABLET PO SCH (08:58)
[2017-01-24] MEDS: VALSARTAN 80 MG TABLET PO SCH (08:58)
[2017-01-24] MEDS: DOCUSATE SODIUM 100 MG CAPSULE PO SCH (08:58)
[2017-01-24 08:59] VITALS: BP 154/70
[2017-01-24] MEDS: LABETALOL HCL (100MG) 100 MG TABLET PO SCH (08:59)
[2017-01-24] MEDS: ASPIRIN 81 MG TAB.CHEW PO SCH (08:59)
[2017-01-24] MEDS: OXYBUTYNIN CHLORIDE 5 MG TABLET PO SCH (08:59)
[2017-01-24] MEDS: AMLODIPINE BESYLATE 10 MG TABLET PO SCH (08:59)
[2017-01-24] MEDS: Z GUARD REMEDY 2 OZ OINT TP SCH (09:00)
--- NOTE | 2017-01-24 09:10 | NUR ---
MS/RN Medications Morning medications administered as ordered, no problems swallowing.
--- NOTE | 2017-01-24 09:35 | NUR ---
MS/cost report clerk update Call received from daughter Mery - made aware that patient may be discharged to home later this afternoon.
--- NOTE | 2017-01-24 10:30 | NUR ---
MS/RN S/B Dr Montes Seen by Dr Montes - patient to be discharged to home today. Prescriptions wrote, copy made and placed in chart.
[2017-01-24] MEDS ORDERED: LEVO750T21 PO (13:14)
--- NOTE | 2017-01-24 14:00 | NUR ---
MS/RN Heplock Heplock removed.
--- NOTE | 2017-01-24 17:06 | NUR ---
MS/woolen suiting shrinker Patient discharged to home in stable condition, accompanied by daughter Mery and son in law. All personal belongings with patient and signed for on belongings list. Education provided to patient about all medications including possible side effects. Prescription sent electronically to preferred pharmacy. All paperwork signed by patient, copies of medical record provided. Escorted to main lobby by RN.
== END 2017-01-24 17:10 | disposition home or self-care (01) | DRG 193 ==
LOC: ER 09:18 → TELE 11:20 → MED 01-16 07:52 → MEDSG2 01-17 21:12
PROVIDERS: ADMIT Nurse Practitioner Acute Care; ATTEND Nurse Practitioner Acute Care
DX: R09.1 Pleurisy (principal); N17.0 Acute kidney failure with tubular necrosis; J45.901 Unspecified asthma with (acute) exacerbation; Z99.81 Dependence on supplemental oxygen; D69.6 Thrombocytopenia, unspecified; K46.9 Unspecified abdominal hernia without obstruction or gangrene; Z95.5 Presence of coronary angioplasty implant and graft; Z79.82 Long term (current) use of aspirin; Z88.1 Allergy status to other antibiotic agents; Z88.0 Allergy status to penicillin; I10 Essential (primary) hypertension; K59.00 Constipation, unspecified; N32.81 Overactive bladder; R00.1 Bradycardia, unspecified; I25.119 Atherosclerotic heart disease of native coronary artery with unspecified angina pectoris
CPT/HCPCS: 36415; 71010-TC; 80048-TC; 80053-TC; 80061-TC; 80076-TC; 83735-TC; 83880; 84100-TC; 84439-TC; 84443-TC; 84484-TC; 85025-TC; 85730-TC; 87081-TC; 93307-TC; 94762-TC; 94799-TC; 97116-TC; 97530-TC; A4606; A6402; J1650; J1940; J7030; Z7610